=== PATIENT | female | born 1970 ===

== ENCOUNTER → 2021-06-26 11:46 | Outpatient (BNVA) | payer BC, SELFPAY | PROVIDERS: PCP Pediatrics; Visit Provider Nurse Practitioner Family ==

== ENCOUNTER 2022-12-08 13:03 | Outpatient (AMB) | payer BC, SELFPAY ==
--- NOTE | 2022-12-08 13:04 | MHC.OFFVIS ---
Intake Intake Visit Reasons: follow up ([employer]) [phone] Intake Note: Pt presents as a telehealth visit. pt states her migraines have not really improved.pt just tested positive for covid so she states it makes sense that she had a headache for over a week. and pt states she has pneumonia as well. 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 Pt endorses the following interval medical history changes: Pt was dx'd w/ PNA and Covid-19 2 days ago- was having increased headaches, then chest pressure, throat pain, and hyposmia. Was started on Doxycycline yesterday. Overall, before this, her headaches were ok. Although sometimes the headache is more persistent. She is having 3-4 headache days per week. She may wait to take the Fioricet, as it can make her drowsy. May use Aleve prn- usually not fully effective. We have previously not triptans d/t h/o chest pain, SOB, and cardiac valve damage. She is concerned about family h/o AD, especially on maternal side. Wonders when f/u brain imaging to monitor white matter changes would be indicated. [facility] Surgical History (Updated 12/08/22 @ 13:12 by Margi Nassar CMA) H/O wrist surgery H/O: hysterectomy Social History (Updated 12/08/22 @ 13:10 by Margi Nassar CMA) Alcohol intake: current Alcohol intake frequency: holidays/special occasions only Patient Tobacco Use Status: Former Tobacco user Use of substances other than those prescribed or required for medical reasons: No Review of Systems Const All systems reviewed & are unremarkable except as noted in HPI and below Physical Exam Const General: cooperative and no acute distress Orientation/consciousness: patient oriented x3 HEENT Other: Mild hoarse throat Head: Yes normocephalic Resp Effort & Inspection: normal respiratory effort and able to speak in complete sentences Neuro General: patient oriented x3 Cognition (Neuro): normal cognition Psych Mental Status: mental status grossly normal Affect: normal affect Attitude: cooperative Assessment & Plan Assessment & Plan (1) Migraine: Code(s): G43.909 - Migraine, unspecified, not intractable, without status migrainosus (2) Weakness: Comment: episodes of prolonged weakness/fatigue/brain fog exacerbated by physical/emotional/cognitive exertion. high suspicion for mitochondrial dysfunction considering her strong maternal family h/o of Oxidative phosphorylation. RF elevated- ? autoimmune process, however rheumatology consults have been inconclusive. Code(s): R53.1 - Weakness (3) COVID-19: Code(s): U07.1 - COVID-19 (4) Pneumonia: Code(s): J18.9 - Pneumonia, unspecified organism Plan Continue Amitriptyline 40mg qhs. Trial Ubrogepant 50-100mg prn, may adjunct w/ Naproxen- take at 1st sign of attack.. Do not take w/ Fioricet- would reduce efficacy of Ubrogepant. Continue Fioricet prn for rescue. Tx contraindications- Triptans d/t episodes of chest pain, SOB, and cardiac valve damage. Continue Co-Q-10, L-carnitine, vitamin B- if able. Continue therapeutic massage. pt advsied to check clinicaltrials.gov for information on current AD/AD prevention trials. f/u in 3 months or sooner prn Medications: New ubrogepant (Ubrelvy) take at onset of migraine, may repeat in 2hrs (may take w/ Aleve) 50 - 100 mg (0.5 - 1 x 100 mg) PO ONCE 30 days PRN 16 tabs 3RF migraine headache Refilled amitriptyline 40 mg (4 x 10 mg) PO BEDTIME 30 days 120 tabs 6RF Telehealth Telehealth Location of provider rendering services: practice address Location of patient: address on file Patient Identification confirmed using: Name, : Yes Telehealth method: video Patient verbally consented to treatment: Yes Patient verbally consented to billing insurance company: Yes Patient informed of any privacy concerns related to visit: Yes Minutes spent on Phone/Video with Pt.: 25 Coding Level of Care Code Tele Est Pt Level 4 (53241) Diagnoses Migraine G43.909 Weakness R53.1 COVID-19 U07.1 Pneumonia J18.9
== END 2022-12-08 14:54 | disposition home or self-care (01) ==
LOC: HO.HSMS 13:03
PROVIDERS: PCP Pediatrics; Visit Provider Nurse Practitioner Family
DX: G43.909 Migraine, unspecified, not intractable, without status migrainosus (principal); R53.1 Weakness; U07.1 COVID-19; J18.9 Pneumonia, unspecified organism
CPT/HCPCS: 99214

== ENCOUNTER → 2022-12-08 13:03 | Outpatient (BNVA) | payer BC, SELFPAY | PROVIDERS: PCP Pediatrics; Visit Provider Nurse Practitioner Family ==

== ENCOUNTER 2023-02-14 10:59 | Outpatient (AMB) | payer BC, SELFPAY ==
--- NOTE | 2023-02-14 11:20 | MHC.OFFVIS ---
Intake Vital Signs 02/14/23 11:23 Weight 119 lb BP 131/76 Blood Pressure Location Rt brachial Position Sitting Pulse 92 Intake Visit Reasons: Epidermoid cyst, RT shoulder Intake Note: This patient presents for an assessment for epidermoid cyst on the right shoulder. Patient c/o; Onset 1 year, reports increased in size, cyst right shoulder. 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 Accompanied by: Self / Same As Patient Allergies No Known Allergies Allergy (Verified 02/14/23 11:24) Medication List - Last Reconciled 02/14/23 by Chapin Sharma MD amitriptyline 40 mg (4 x 10 mg) PO BEDTIME 30 days gavznsnykj-vgrbmqymzldak-axrp 50-325-40 mg 1 - 2 tabs PO Q4H PRN 30 days doxycycline hyclate 100 mg PO BID rizatriptan 5 - 10 mg (0.5 - 1 x 10 mg) PO Q2H PRN 21 days sumatriptan succinate 50 - 100 mg orally at onset of headache, may repeat in 2 hrs PRN; max 2 tabs per day or 4 tabs/week (may take with Ibuprofen) 30 days ubrogepant (Ubrelvy) 50 - 100 mg (0.5 - 1 x 100 mg) PO ONCE PRN 30 days HPI HPI Comments History of Present Illness Details Patient presents with her mother for evaluation of the left shoulder sebaceous cyst. She has had this several years time. It is increasing size, become more symptomatic. She would like to have this excised. After chart was reviewed patient evaluated [facility] Surgical History H/O wrist surgery H/O: hysterectomy Social History Alcohol intake: current Alcohol intake frequency: holidays/special occasions only Patient Tobacco Use Status: Former Tobacco user Physical Exam Vital Signs: Last Vital Signs Pulse 92 02/14/23 11:23 BP 131/76 02/14/23 11:23 Skin Other: Approximate 3 x 2 cm large left lateral shoulder sebaceous cyst. Office Procedures Excision Details: Risks, benefits, alternatives of sebaceous cyst excision of left shoulder reviewed the patient and included but not limited to bleeding, infection, recurrence, numbness, pain, scarring, seroma formation, wound dehiscence, and patient wished to proceed. Consent was signed. After appropriate positioning, patient's left shoulder underwent 1% lidocaine and Betadine prep. A transverse bi- elliptical incision was made around the cyst in question measuring approximately 3 x 2 cm. This was excised in total and sent to pathology. Wound was irrigated, secured hemostasis, and closed using running subcuticular 3-0 Vicryl suture followed by Steri-Strips and sterile dressings. Patient tolerated procedure well. 97397-atxla/arms/legs 2.1-3cm Procedure code (CPT) selection complete Office Meds lidocaine 1 %-epinephrine 1:100,000 injection solution Performing Provider: Chapin Sharma MD Performing Location: [facility] [place] [facility] Surgeons Administered by: Chapin Sharma MD on 02/14/23 12:23 Dose Route Admin Location Dispensed Lot Number Expiration Date [facility] Methods Engineer 10 mL Infiltration 10 mL Assessment & Plan Assessment & Plan (1) Sebaceous cyst: Code(s): L72.3 - Sebaceous cyst Plan: Patient has been given local instructions including ice the wound periodically, no stress activities, may shower in 2 days and will see me as directed or p.r.n. Orders: Orders AMB Excision Today L72.3 - Sebaceous cyst Coding Level of Care Code New Pt Level 4 (32589) Diagnoses Sebaceous cyst L72.3 CPT Codes Trunk/Arms/Legs - CPT: 58410-wgcwn/arms/legs 2.1-3cm ([id number])
[2023-02-14 11:23] VITALS: BP 131/76; PULSE 92
== END 2023-02-14 12:14 | disposition home or self-care (01) ==
PROVIDERS: PCP Internal Medicine; Referring Provider Internal Medicine; Visit Provider Surgery
DX: L72.0 Epidermal cyst (principal)
CPT/HCPCS: 11402; 99204

== ENCOUNTER 2023-02-14 10:59 | Outpatient (REF) | payer BC, SELFPAY | END 2023-02-14 11:00 | disposition home or self-care (01) | LOC: HO.LNP 10:59 | PROVIDERS: PCP Internal Medicine; Referring Provider Internal Medicine; Visit Provider Surgery | DX: L72.3 Sebaceous cyst (principal) | CPT/HCPCS: 11402; 88304 ==

== ENCOUNTER 2023-02-21 11:36 | Outpatient (AMB) | payer BC, SELFPAY ==
[2023-02-21 11:39] VITALS: BP 128/76; PULSE 76
--- NOTE | 2023-02-21 11:39 | A.OFFVIS_ITS ---
Intake Vital Signs 02/21/23 11:39 Weight 119 lb BP 128/76 Blood Pressure Location Rt brachial Position Sitting Pulse 76 Intake Visit Reasons: s/p lt shoulder Intake Note: Patient here s/o exc lt shoulder. Reports incision healing well. Denies oozing, pain or itch. 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 No wound issues or complaints. Pathology is benign. PFSH Surgical History H/O wrist surgery H/O: hysterectomy Social History Alcohol intake: current Alcohol intake frequency: holidays/special occasions only Patient Tobacco Use Status: Former Tobacco user Physical Exam Vital Signs: Last Vital Signs Pulse 76 02/21/23 11:39 BP 128/76 02/21/23 11:39 Chest Other: Left shoulder wound is healing very well. Assessment & Plan Assessment & Plan (1) Sebaceous cyst: Code(s): L72.3 - Sebaceous cyst Plan Patient has been given local instructions including avoiding strenuous activities for next 2 weeks time and will follow-up p.r.n. Coding Level of Care Code Global (62353) Diagnoses Sebaceous cyst L72.3
== END 2023-02-21 11:50 | disposition home or self-care (01) ==
PROVIDERS: PCP Internal Medicine; Visit Provider Surgery
DX: L72.3 Sebaceous cyst (principal)
CPT/HCPCS: 99024

== ENCOUNTER → 2023-02-21 11:36 | Outpatient (BNVA) | payer BC, SELFPAY | PROVIDERS: PCP Internal Medicine; Visit Provider Surgery ==

== ENCOUNTER 2023-04-12 13:17 | Outpatient (AMB) | payer BC, SELFPAY ==
[2023-04-12 13:17] VITALS: BP 118/74; PULSE 99; O2SAT 98; BMI 24.3
--- NOTE | 2023-04-12 13:17 | MHC.OFFVIS ---
Intake Vital Signs 04/12/23 13:17 Height 4 ft 11 in Weight 120 lb 4 oz BMI 24.3 BP 118/74 Blood Pressure Location Rt brachial Position Sitting Pulse 99 Pulse Source Pulse Oximeter Pulse Oximetry (%) 98 Oxygen Delivery Method Room Air Intake Visit Reasons: Follow up Seizure - LVM Intake Note: Pt presents to the office today for a follow up for seizures. Pt states she is not feeling well. Pt states her migraines are getting worse. Pt was seen in [facility] ER on 04/07/23. Pt states they told her it was either a TIA or seizure caused by her migraine. Pt states she did have a CT,MRI, and X-rays done. Pt states she also is very fatigued. Allergies No Known Allergies Allergy (Verified 04/12/23 13:20) Medication List - Last Reconciled 04/12/23 by LAY Syed amitriptyline 40 mg (4 x 10 mg) PO BEDTIME 30 days zhmueluycc-qonbmiufcbjbw-mnyd 50-325-40 mg 1 - 2 tabs PO Q4H PRN 30 days rizatriptan 5 - 10 mg (0.5 - 1 x 10 mg) PO Q2H PRN 21 days sumatriptan succinate 50 - 100 mg orally at onset of headache, may repeat in 2 hrs PRN; max 2 tabs per day or 4 tabs/week (may take with Ibuprofen) 30 days ubrogepant (Ubrelvy) 50 - 100 mg (0.5 - 1 x 100 mg) PO ONCE PRN 30 days HPI HPI Comments History of Present Illness Details 53-yr-old female presents for f/u visit. Pt had a [facility] ER evaluation last week. She had been having a week of varying migraine the week prior- in varying intensity. Then on Tue, she woke up in the morning feeling a little shaky and then some numbness/pins & needles in her hands and toes. She was in a lunch meeting, she was in a good mood, laughing with a colleague. However she was feeling a bit confused, and then said something completely different than what she was thinking. She was not able to recall 2 of her therapy sessions. After which, she tried to drive home, but she forgot how to get home, pulled over, her work's therapy dog sat on her, and then she realized that she was not driving. That night she went to bed. The following morning, she called her mother, was speaking gibberish. At that point, she was brought to [facility] ER. In the ER, brain MRI, head CT, head/neck CTA- non-diagnostic. Pt was advsied to f/u w/ us- ? complex migraine . She is worried about having another episode. Prior to this, overall her migraine burden was increasing. Now, she is having a constant migraine with varying intensity level. The migraine is often left sided, throbbing pain when severe, aching when mild-mod. A/w photophobia, phonobia, allodynia, nausea, vomiting. She has been compliant w/ Amitriptyline 40mg. Sumatriptan and Rizatriptan- not effective. Never rec'd Ubrlevy. She stopped Fioricet. [facility] Surgical History H/O wrist surgery H/O: hysterectomy Alcohol intake: current Alcohol intake frequency: holidays/special occasions only Patient Tobacco Use Status: Former Tobacco user Review of Systems Const All systems reviewed & are unremarkable except as noted in HPI and below Physical Exam Vital Signs: Last Vital Signs Pulse 99 04/12/23 13:17 BP 118/74 04/12/23 13:17 Pulse Ox 98 04/12/23 13:17 Oxygen Delivery Method Room Air 04/12/23 13:17 BMI result Body Mass Index 24.3 Const General: cooperative and no acute distress Orientation/consciousness: patient oriented x3 HEENT Head: Yes normocephalic Resp Effort & Inspection: normal respiratory effort and able to speak in complete sentences Neuro General: patient oriented x3, gait normal and CN's II-XI intact bilaterally Cognition (Neuro): normal cognition Motor exam (neuro): 5/5 motor strength present throughout Psych Appearance: grossly normal Mental Status: mental status grossly normal Speech and movement: Normal speech and movement present Affect: normal affect Attitude: cooperative Thought process: Normal thought process present Thought content: Normal thought content present Insight: Good insight present (Psych) Judgement: Good judgement present (Psych) Assessment & Plan Assessment & Plan (1) Altered mental status: Code(s): R41.82 - Altered mental status, unspecified (2) White matter abnormality on MRI of brain: Code(s): R90.82 - White matter disease, unspecified (3) Migraine: Comment: ? chronic migraine with aura Code(s): G43.909 - Migraine, unspecified, not intractable, without status migrainosus Plan For recent episode of AMS- In [facility] ER: Brain MRI w/o: Mild scattered T2/FLAIR hyperintense foci in the white matter Head-Neck CTA- negative Head CT- negative Pt advised to undergo EEG- although discussed low suspicion for epileptic etiology d/t prolonged duration of her episode/s of AMS. Pt advised to undergo f/u brain MRI w/wo- to assess for any interval change in MRI- ? TIA/CVA not captured initially or inflammatory central process. Advised to optimize migraine prevention regimen: Start Propranolol 10mg bid. Continue Amitriptyline 40mg qhs. For acute migraine tx: Hold Sumatriptan and Rizatriptan- ineffective. Again trial Ubrogepant 50-100mg prn, may adjunct w/ Naproxen- take at 1st sign of attack.. Do not take w/ Fioricet- would reduce efficacy of Ubrogepant. Pt has stopped Fioricet prn- ineffective. Tx contraindications- Sumatriptan and Rizatriptan- ineffective. Fioricet prn- ineffective. ? For ? mitochondrial d/o: Continue Co-Q-10, L-carnitine, vitamin B- if able. Continue therapeutic massage. ?? f/u in 3 months or sooner prn Orders: Orders MR head/brain wo/w con Today G43.909 - Migraine, unspecified, not intractable, without status migrainosus, R41.82 - Altered mental status, unspecified, R90.82 - White matter disease, unspecified EEG electroencephalogram Today R41.82 - Altered mental status, unspecified Medications: New propranolol 10 mg PO BID 30 days 60 tabs 3RF Refilled ubrogepant (Ubrelvy) take at onset of migraine, may repeat in 2hrs (may take w/ Aleve) 50 - 100 mg (0.5 - 1 x 100 mg) PO ONCE 30 days PRN 16 tabs 3RF migraine headache Discontinued cqvfllpqbg-dizcmmdcjulli-wvjs 50-325-40 mg 1-2 tabs at onset of headache, may repeat in 4 hours (max 2 tabs/day, 4 tabs/week) Discontinued Reason: Doctor's Order 1 - 2 tabs PO Q4H 30 days PRN 20 tabs 3RF pain Coding Level of Care Code Est Pt Level 4 (06469) Diagnoses Altered mental status R41.82 White matter abnormality on MRI of brain R90.82 Migraine G43.909
== END 2023-04-12 14:20 | disposition home or self-care (01) ==
PROVIDERS: PCP Internal Medicine; Visit Provider Nurse Practitioner Family
DX: R41.82 Altered mental status, unspecified (principal); R90.82 White matter disease, unspecified; G43.909 Migraine, unspecified, not intractable, without status migrainosus
CPT/HCPCS: 99214

== ENCOUNTER → 2023-04-12 13:17 | Outpatient (BNVA) | payer BC, SELFPAY | PROVIDERS: PCP Internal Medicine; Visit Provider Nurse Practitioner Family ==

== ENCOUNTER 2023-04-28 12:03 | Outpatient (REF) | payer BC, SELFPAY ==
--- NOTE | 2023-04-28 12:10 | EEG_ITS ---
This is a 16-channel EEG with an EKG lead. The patient is reported alert and awake during the tracing. Background EEG rhythm is low amplitude fast with no obvious asymmetry or paroxysmal tendency. Photic stimulation does not produce any significant abnormality. Hyperventilation is not performed to the full extent. No sharp wave spikes or paroxysmal tendency noted. Cardiac lead does not reveal any significant abnormality. IMPRESSION: No significant abnormality noted on this EEG. MD ORTIZ Paez/MO / [id number]
== END 2023-04-28 12:04 | disposition home or self-care (01) ==
LOC: HO.NEURO 12:03
PROVIDERS: PCP Internal Medicine; Visit Provider Nurse Practitioner Family
DX: R41.82 Altered mental status, unspecified (principal)
CPT/HCPCS: 95816

== ENCOUNTER 2023-12-27 11:32 | Outpatient (AMB) | payer BC, SELFPAY ==
--- NOTE | 2023-12-27 11:33 | A.OFFVIS_ITS ---
Vital Signs 12/27/23 11:34 Height 4 ft 11 in Weight 115 lb BMI 23.2 BP 112/82 Blood Pressure Location Rt brachial Position Sitting Pulse 91 Pulse Source Pulse Oximeter Pulse Oximetry (%) 96 Oxygen Delivery Method Room Air Intake Visit Reasons: 4 mo f/u - Seizure-CONF Intake Note: Patient presents for migraines worsened since seeing provider has migraines everyday for the last two weeks. Allergies No Known Allergies Allergy (Verified 12/27/23 11:40) Medication List - Last Reconciled 12/27/23 by LAY Syed amitriptyline 40 mg (4 x 10 mg) PO BEDTIME 30 days ubrogepant (Ubrelvy) 50 - 100 mg (0.5 - 1 x 100 mg) PO ONCE PRN 30 days HPI Comments Details: 53-yr-old female presents for f/u visit. Pt denies any significant interval medical changes. She has not had any further seizure like episodes- she now feels that the seizure like episode may have been triggered by a worsening migraine period. Pt has had a migraine every day in the last 2 weeks. She is not sure why she has had this uptick in migraine- maybe stress or the recent increase in hot weather. The Ubrelvy has been helpful, however she only takes it at night as it makes her sleepy. She tried Propranolol- but it caused her to be lightheaded/faint, which resolved upon stopping. Baseline headache characteristics: often left sided, throbbing pain when severe, aching when mild-mod. A/w photophobia, phonobia, allodynia, nausea, vomiting. PFSH Surgical History H/O wrist surgery H/O: hysterectomy Social History Alcohol intake: current Alcohol intake frequency: holidays/special occasions only Patient Tobacco Use Status: Former Tobacco user Physical Exam Vital Signs: Last Vital Signs Pulse 91 12/27/23 11:34 BP 112/82 12/27/23 11:34 Pulse Ox 96 12/27/23 11:34 Oxygen Delivery Method Room Air 12/27/23 11:34 BMI result Body Mass Index 23.2 Const General: cooperative and no acute distress Orientation/consciousness: patient oriented x3 Resp Effort & Inspection: normal respiratory effort and able to speak in complete sentences Neuro General: patient oriented x3 Cranial nerves: Yes CN's II-XII intact bilaterally Cognition (Neuro): normal cognition Psych Appearance: grossly normal Mental Status: mental status grossly normal Speech and movement: Normal speech and movement present Affect: normal affect Attitude: cooperative Assessment & Plan Assessment & Plan (1) Migraine: Comment: ? chronic migraine with aura Code(s): G43.909 - Migraine, unspecified, not intractable, without status migrainosus Category: Medical (2) Altered mental status: Code(s): R41.82 - Altered mental status, unspecified Category: Medical Plan For previous episode of AMS- [facility] ER, Brain MRI w/o: Mild scattered T2/FLAIR hyperintense foci in the white matter Head-Neck CTA- negative Head CT- negative [facility], EEG- normal. No further episodes- ? if secondary to migraine. Will monitor. ? Advised to optimize migraine prevention regimen: Pt stopped Propranolol 10mg bid- not tolerated caused lightheadedness. Start Emaglaity 240mg sc x's 1 f/b 120mg sc q month. Continue Amitriptyline 40mg qhs. Previous trials- Propranolol 10mg bid- not tolerated caused lightheadedness. ? For acute migraine tx: Continue Ubrogepant 50-100mg prn, may adjunct w/ Naproxen- take at 1st sign of attack. Trial taking 50mg to see if this causes less sleepiness. Tx contraindications- Sumatriptan and Rizatriptan- ineffective. Fioricet prn- ineffective. ? For ? mitochondrial d/o: Continue Co-Q-10, L-carnitine, vitamin B- if able. Continue therapeutic massage. ?? f/u in 6 months or sooner prn Medications: New galcanezumab-gnlm (Emgality Pen) Loading dose: 120 mg subcu injection x2 in alternate sites (total 240 mg). T o be followed by maintenance dose of 120 mg subcu q.month. 240 mg (2 mL) subcut ONCE 30 days 2 mL 0RF Coding Level of Care Code Est Pt Level 4 (52279) Diagnoses Migraine G43.909 Altered mental status R41.82
[2023-12-27 11:34] VITALS: BP 112/82; PULSE 91; O2SAT 96; BMI 23.2
== END 2023-12-27 12:43 | disposition home or self-care (01) ==
PROVIDERS: PCP Internal Medicine; Visit Provider Nurse Practitioner Family
DX: G43.909 Migraine, unspecified, not intractable, without status migrainosus (principal); R41.82 Altered mental status, unspecified
CPT/HCPCS: 99214

== ENCOUNTER → 2023-12-27 11:32 | Outpatient (BNVA) | payer BC, SELFPAY | PROVIDERS: PCP Internal Medicine; Visit Provider Nurse Practitioner Family ==

== ENCOUNTER 2024-07-02 13:46 | Outpatient (AMB) | payer BC, SELFPAY ==
--- NOTE | 2024-07-02 13:37 | MHC.OFFVIS ---
Vital Signs 07/02/24 13:42 Height 4 ft 11 in Weight 108 lb BMI 21.8 Intake Visit Reasons: Follow up Trip Motor Operator Required: No Allergies No Known Allergies Allergy (Verified 07/02/24 13:40) HPI Comments Details: 54-yr-old female presents for f/u televideo visit for migraine. 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 Pt reports she had an 8 day hospitalization for small bowel obstruction in Jan 2024, which was thought to be due to postsurgical adhesions from previous hysterectomy and h/o mx laprascopic procedures to manage endometriosis. During the hospitalization, patient had weight loss down to 110 lb, in her weight now is 107-108 lb. She is being followed by [facility]. She has been started on Linzess. Rayshawn is scheduled for f/u endoscopy on 07/26/24 She does think that since starting Linzess about a month ago, she is having more headache. She is waking up daily with a headache. She thinks the BAILEY is triggered by not drinking enough water, as on Linzess, she needs to drink increased fluids. She is compliant w/ Amitriptyline 40mg. She never started Emgality d/t the SBO- and more recently, GI asked her to hold this until after GI workup is complete. She is using Ubrelvy prn which is helpful.. She has not had any further seizure like episodes- she now feels that the seizure like episode may have been triggered by a worsening migraine period. Baseline headache characteristics: often left sided, throbbing pain when severe, aching when mild-mod. A/w photophobia, phonobia, allodynia, nausea, vomiting. PFSH Surgical History H/O wrist surgery H/O: hysterectomy Social History Alcohol intake: current Alcohol intake frequency: holidays/special occasions only Patient Tobacco Use Status: Former Tobacco user Physical Exam Vital Signs: BMI result Body Mass Index 21.8 Const General: cooperative and no acute distress Orientation/consciousness: patient oriented x3 Resp Effort & Inspection: normal respiratory effort and able to speak in complete sentences Neuro General: patient oriented x3 Cognition (Neuro): normal cognition Psych Appearance: grossly normal Mental Status: mental status grossly normal Speech and movement: Normal speech and movement present Affect: normal affect Attitude: cooperative Telehealth Telehealth Telehealth Platform: [facility] Location of provider rendering services: practice address Location of patient: address on file Patient Identification confirmed using: Name, : Yes Telehealth method: video Patient verbally consented to treatment: Yes Patient verbally consented to billing insurance company: Yes Patient informed of any privacy concerns related to visit: Yes Minutes spent on Phone/Video with Pt.: 24 Assessment & Plan Assessment & Plan (1) Migraine: Comment: ? chronic migraine with aura Code(s): G43.909 - Migraine, unspecified, not intractable, without status migrainosus Category: Medical (2) History of small bowel obstruction: Comment: January 2024- f/b [facility] Code(s): Z87.19 - Personal history of other diseases of the digestive system Category: Medical (3) Constipation: Code(s): K59.00 - Constipation, unspecified Category: Medical (4) Weakness: Comment: episodes of prolonged weakness/fatigue/brain fog exacerbated by physical/emotional/cognitive exertion. high suspicion for mitochondrial dysfunction considering her strong maternal family h/o of Oxidative phosphorylation. RF elevated- ? autoimmune process, however rheumatology consults have been inconclusive. Code(s): R53.1 - Weakness Category: Medical Plan For previous episode of AMS- We will continue to monitor Previous workup: [facility] ER, Brain MRI w/o: Mild scattered T2/FLAIR hyperintense foci in the white matter Head-Neck CTA- negative Head CT- negative [facility], EEG- normal. No further episodes- ? if secondary to migraine. Will monitor. For overall migraine treatment: Continue to try to drink plenty of water every day. May try adjunct doing this with 1 or 2 servings of liquid IV or alternate electrolyte replacement beverage per day. Discussed at migraine itself and some migraine treatment options can exacerbate constipation or gastroparesis type symptoms, and thus we should be mindful in choosing migraine treatments to avoid exacerbating constipation or triggering recurrence of SBO. ? For migraine prevention treatment: Continue to hold Emaglaity until GI workup complete. Patient will ask that her GI reports before added to us. Continue Amitriptyline 40mg qhs. Previous trials- Propranolol 10mg bid- not tolerated caused lightheadedness. Migraine prevention treatment contraindications: Would avoid Aimovig due to risk for worsening constipation. For acute migraine tx: Continue Ubrogepant 50-100mg prn, may adjunct w/ Naproxen- take at 1st sign of attack. Tx contraindications- Sumatriptan and Rizatriptan- ineffective. Fioricet prn- ineffective. ? For ? mitochondrial d/o: Continue Co-Q-10, L-carnitine, vitamin B- if able. Continue therapeutic massage. ?? f/u in 6 months or sooner prn Coding Level of Care Code Tele Est Pt Level 4 (26022) Diagnoses Migraine G43.909 History of small bowel obstruction Z87.19 Constipation K59.00 Weakness R53.1
[2024-07-02 13:42] VITALS: BMI 21.8
--- OUTSIDE RECORDS SUMMARY | 2024-07-02 14:55 | XMS_ITS | Clinical Summary ---
Author Organization [employer] Address [address] [facility] [address] [place] [address] Care Team Providers Care Mortgage Loan Officer Name Role Phone Katheryn Rivera MD Primary Care Provider [phone] Allergies No known active allergies Medications Misc. Devices ([employer] Pulse Oximeter) miscIndications: Pneumonia due to COVID-19 virus 1 each if needed (COVID). 1 each 12/08/19 23 Active amitriptyline (Elavil) 10 MG tablet TAKE 4 TABLETS BY MOUTH EVERY DAY AT BEDTIME 02/28/20 23 Active Blood Pressure kit To check the BP daily. 1 kit 07/14/19 24 Active Emgality 120 MG/ML auto-injector Inject 1 each under the skin every 30 (thirty) days. 02/20/20 24 Active Ubrelvy 100 MG tablet TAKE 1/2 TO 1 TAB BY MOUTH ONCE NEEDED AT ONSET OF MIGRAINE,MA Y REPEAT IN 2HRS(MAY TAKE W/ ALEVE) 02/13/20 24 Active Bisacodyl EC 5 MG EC tabletIndication s:Slow transit constipation TAKE 1 TABLET BY MOUTH IF NEEDED EACH DAY FOR CONSTIPATIO N. DO NOT CRUSH, CHEW, OR SPLIT. 30 tablet 1 06/14/19 25 Active Bisacodyl EC 5 MG EC tabletIndication s:Slow transit constipation TAKE 1 TABLET BY MOUTH IF NEEDED EACH DAY FOR CONSTIPATIO N. DO NOT CRUSH, CHEW, OR SPLIT. 30 tablet 05/07/20 24 025 Discontinued Active Problems Problem Noted Date Diagnosed Date Constipation 03/16/2024 Endometriosis 03/06/2024 Classic migraine 03/17/2023 03/17/2023 Anxiety and depression 03/17/2023 Rheumatic heart disease 03/17/2023 03/17/20 Encounters Date Type Department Care Team Description 06/12/2024 Refill [facility] [address] [place] [address] Katheryn Rivera MD Slow transit constipation 05/07/2024 [facility] [address] [place] [address] Katheryn Rivera MD Slow transit constipation from Last 3 Months Immunizations Name Administration Dates Next Due Influenza injectable quadrivalent preservative f ree 02/07/2023,02/19/2021 Influenza, IIV3, injectable 02/02/2013 Influenza, seasonal, injectable, preservative fr ee 03/06/2024 Pfizer Covid-19 Vaccine 12+ 03/06/2024 Td (adult), unspecified 06/11/2009 Social History Tobacco Use Types Packs/Day Years Used Date Smoking Tobacco: Never Smokeless Tobacco: Never Tobacco Cessation:Counseling Given: Not Answered Alcohol Answer Date Recorded Frequency of Alcohol Consumption Not on file 03/16/2024 Average Number of Drinks Not on file 024 Frequency of Binge Drinking Not on file 02/21 Score 0 03/16/2024 Depression Answer Date Recorded Patient Health Questionnaire-9 Score 0 03/17/2023 Patient Health Questionnaire-9 Score 0 03/17/2023 Last PHQ-9: Questionnaire Data Not on file 1 Housing Stability Answer Date Recorded What is your housing situation today? I have viola mcneil 03/17/[address] you li ve. Do you have problems with any of the following? None of the above 03/17/2023 Food Insecurity Answer Date Recorded Within the past 12 months, y ou worried that your food would run out before you got money to buy more: Never True 03/17/2023 Within the past 12 months,th e food you bought just didn't last and you didn't have enough money to get more: Never True Transportation Answer Date Recorded In the past 12 months, has l ack of transportation kept you from medical appts, meetings, work or from getting things needed for daily living? No 03/17/2023 Utilities Answer Date Recorded In the past 12 months, has t he electric, gas, oil or water company threatened to shut off services in your home? No 03/17/2023 Depression Answer Date Recorded Patient Health Questionnaire-2 Score 0 03/17/2023 Comments Unknown Sex and Gender Information Value Date Recorded Sex Assigned at Female 03/22/2022 10:37 AM EDT Legal Sex Female 10:37 AM EDT Gender Identity Choose not to disclose 10:37 AM EDT Sexual Orientation Choose not to disclose 2021 10:37 AM EDT Last Filed Vital Signs Vital Sign Reading Time Taken Comments Blood Pressure 120/78 03/16/2024 2:14 PM EDT Pulse 82 03/16/2024 2:14 PM EDT Temperature 36.4 ??C (97.6 ??F) 03/16/2024 2:14 PM ED T Respiratory Rate 20 03/16/2024 2:14 PM EDT Oxygen Saturation 98% 03/16/2024 2:14 PM EDT Inhaled Oxygen Concentration - - Weight 50.2 kg (110 lb 9.6 oz) 03/16/2024 2:14 P M EDT Height 152 cm (4' 11.84 ) 03/16/2024 2:14 PM EDT Body Mass Index 21.71 03/16/2024 2:14 PM EDT Plan of Treatment Health Maintenance Due Date Last Done Comments CT Colonography 1969 Colonoscopy 1969 Colorectal Cancer Screening 1969 FIT DNA/Cologuard 1969 FIT 1969 FOBT 1969 HIV Screening 1969 Sigmoidoscopy 1969 Hepatitis C Screening 1987 Hepatitis B Vaccines (1 of 3 - 19+ 3-dose series) 01/31/1988 Pap Smear 1990 Cervical Cancer Screening 1999 HPV/Cotest 1999 Mammogram 2009 DTaP/Tdap/Td Vaccines (1 - Tdap) 06/12/2009 06/11/2009 Pneumococcal Vaccine: 50+ Years (1 of 1 - PCV) 2019 Zoster Vaccines (1 of 2) 2019 Depression Screening 03/17/2024 03/17/2023, 03/17/20 SDOH Screening 03/17/2024 03/17/2023 Alcohol/Substance Use Screening 03/16/2025 03/16/2024 Tobacco Screening 03/18/2025 03/18/2024 RSV Patients and Patients Aged 60 years or older (1 - 1-dose 75+ series) 01/31/2044 COVID-19 Vaccine Completed 03/06/2024, , 03/12/2021, Additional history exists Influenza Vaccine Completed 03/06/2024, , 02/19/2021, Additional history exists HIB Vaccines Aged Out No longer eligi ble based on patient's age to complete this topic HPV Vaccines Aged Out No longer eligi ble based on patient's age to complete this topic Hepatitis A Vaccines Aged Out No long er eligible based on patient's age to complete this topic IPV Vaccines Aged Out No longer eligi ble based on patient's age to complete this topic Meningococcal Vaccine Aged Out No dhruv ramón eligible based on patient's age to complete this topic RSV under 20 months Aged Out No longe r eligible based on patient's age to complete this topic Rotavirus Vaccines Aged Out No longer eligible based on patient's age to complete this topic Procedures Procedure Name Priority Date/Time Associated Diagnosis Comments AMB REFERRAL TO GASTROENTEROLOGY Routine 05/14/2024 Small bowel obstruction (CMS/HCC) from Last 3 Months Results * Referral to Gastroenterology (05/14/2024) Katheryn Rivera MD OUTPATIENT REFERRAL ORDERAB LES Final Result from Last 3 Months Insurance [facility] [place] [address] [place] [id number] [place] [id number] Care Teams Mortgage Loan Officer Relationship Specialty Start Date End Date Katheryn Rivera MD [address] [place] [id number] PCP - General Internal Medicine 01/16/20
--- OUTSIDE RECORDS SUMMARY | 2024-07-02 14:55 | XMS_ITS | Clinical Summary ---
Author Organization [employer] [facility] Address [address] [address] Care Team Providers Care Mixer Foam Rubber Name Role Phone No, Pcp BULLION WEIGHER Primary Care Provider Unavailabl e Allergies No known active allergies Medications oxyCODONE (ROXICODONE) 5 MG immediate release tablet TAKE 1 TABLET BY MOUTH FOUR TIMES A DAY NEEDED FOR PAIN (DO NOT DRIVE) 04/21/2020 Active amitriptyline (ELAVIL) 10 MG tablet TAKE 1 TABLET BY MOUTH EVERYDAY AT BEDTIME 08/15/2020 Active butalbital-acet aminophen-caffe ine (ESGIC) 50-325-40 mg tablet TAKE 1 TO 2 TABLETS AT ONSET OF HEADACHE NEEDED ,MAY REPEAT IN 4 HOURS (MAX 4 TABS PER DAY) 07/18/2020 Active Denta 5000 Plus 1.1 % crea BRUSH DIRECTED 07/18/2020 Active polyethylene glycol (GoLYTELY) 236-22.74-6.74 -5.86 gram solution MIX WITH WATER TO FILL LINE. TAKE DIRECTED 07/22/2020 Active Social History Tobacco Use Types Packs/Day Years Used Date Smoking Tobacco: Never Assessed Comments Unknown Sex and Gender Information Value Date Recorded Sex Assigned at Not on file Legal Sex Female 4:54 PM EST Gender Identity Not on file Sexual Orientation Not on file Last Filed Vital Signs Vital Sign Reading Time Taken Comments Blood Pressure - - Pulse 60 08/21/2020 12:31 PM EDT Temperature 36.1 ??C (97 ??F) 08/21/2020 12:31 PM EDT Respiratory Rate - - Oxygen Saturation 100% 08/21/2020 12:31 PM EDT Inhaled Oxygen Concentration - - Weight - - Height - - Body Mass Index - - Plan of Treatment Health Maintenance Due Date Last Done Comments Colorectal Cancer: COLONOSCO PY Screening every 10 yrs (or Modifier) 1969 Depression: Screening Annual ly using PHQ-2/9 in Adults 18 yrs or above (or HM Modifier)([facility]) 1987 Hepatitis C Virus Infection in Adolescents and Adults: Screening (or Modifier) ([facility]) 1987 SDHI Screening Reminder: Dora butt for all adults ([facility]) 1987 Tobacco Smoking Cessation: i n Adults excluding Women: Behavioral and Pharmacotherapy Interventions ([facility]) 1987 DTaP/Tdap/Td Vaccines ([facility]) (1 - Tdap) 01/31/1988 Cervical Cancer Screenin 1-65 yrs of age (or Modifier) 1990 Cervical Cancer Screening: P ap every 3 yrs pts age 21-65 1990 Cervical Cancer: Pap Screeni ng with Modifier timing ([facility]) 1990 Cervical Cancer: hrHPV alone or with cotesting Pap for Pts 30-65yrs screening every 5yrs ([facility]) 1990 Colorectal Cancer Screening 45 -75 Yrs (or HM Modifier) 2014 Colorectal Cancer: FLEXIBLE SIGMOIDOSCOPY Screening every 5 yrs 2014 Colorectal Cancer: Fecal Immunochemical Test (FIT) Annually [facility] 2014 Colorectal Cancer: High-sens itivity gFOBT Screening Annually [facility] 2014 Colorectal Cancer: Stool Col oguard Screening every 3 yrs 2014 Colorectal Cancer:CT Colonog masoud Screening every 5 yrs 2014 Lipid Screening: Every 5 yrs for Women aged 45+ (or HM Modifier) ([facility]) 2015 Breast Cancer: Screening Dora butt age 50-74 yrs (or HM Modifier)([facility]) 2019 Zoster/Shingles Vaccine Seri es Screening: Adults aged 18+ yrs (or HM Modifiers)([facility]) (1 of 2) 2019 Flu Vaccination: Yearly for ages 18mos through 64 years (or Modifier)([facility]) 12/22/2023 COVID-19 Vaccine Screening: Initial Series and Booster Status ([facility]) (2023-25 season) 2024 Pneumococcal Vaccination Scr eening: Pts 0-19 & 19-64 yrs of age ([facility]) Aged Out No longer eligible based on patient's age to complete this topic Medical Devices Not on file Insurance [employer] Care Teams Mixer Foam Rubber Relationship Specialty Start Date End Date No, Pcp, BULLION WEIGHER N/A Do not use PCP - General Family Medicine 06/30/20
--- OUTSIDE RECORDS SUMMARY | 2024-07-02 14:55 | XMS_ITS | Continuity of Care Document ---
Author Organization [facility] Address [address] [place] [id number] [facility] Name Relationship Address Phone MINNIE SHIPMAN mother Unknown Unavailable CALVIN MEDRANO Personal Relationship Unknown Unava ilable ZENY MEDRANO child Unknown Unavailable ANGELIQUE CLAUDIO sibling Unknown Unavailable MINNIE SHIPMAN mother Unknown Unavailable Care Team Providers Care Nursing Program Coordinator Name Role Phone Nicole DELUNA, Katheryn Primary Care Physician [facility] [id number] Date(s): 05/14/24 - 06/13/24 [facility] [address] [place] [id number] Attending Physician: Paulie Tavares Admitting Physician: Paulie Tavares Referring Physician: AdmtrPaulei Encounter Type: Triage Allergies, Adverse Reactions, Alerts No Known Allergies Immunizations Given and Recorded Vaccine Date Status Refusal Reason influenza virus vaccine, inactivated 02/02/13 Give n tetanus-diphtheria toxoids (Td) 1 06/11/09 Given 1Admin Note: [facility] [place] Medications acetaminophen/butalbital/caffeine 300 mg-50 mg-40 mg oral capsule 1 capsule, By Mouth, Every 4 hours, 0 Refills, Maintenance, 03/12/21 10:23:00 AM EDT, Partial fill upon patient request if the prescription is for a schedule II opioid drug. Start Date: 03/12/21 Status: Ordered Repeat number: 1 amitriptyline 10 mg oral tablet 40 mg, 4, tablet, By Mouth, Daily at bedtime, Refills 0, Maintenance, 04/07/23 6:54:00 PM EST, Partial fill upon patient request if the prescription is for a schedule II opioid drug. Start Date: 04/07/23 Status: Ordered Repeat number: 1 Linzess 145 mcg oral capsule 1 capsule = 145 mcg, By Mouth, Daily, Take 30 minutes before breakfast, # 30 capsule, 3 Refills, Maintenance, 05/14/24 2:42:00 PM EST, Capsule, [id number], 150, cm, 05/14/24 13:44:00 EST, Height, 58.1, kg, 02/06/24 22:27:00 EDT, Dry Weight Start Date: 05/14/24 Stop Date: 09/11/24 Status: Ordered Quantity: 30.0 Unit: capsule Repeat number: 4 Multi Vitamin+ By Mouth, Daily, 0 Refills, Maintenance, 03/14/20 2:00:00 PM EDT Start Date: 03/14/20 Status: Ordered Repeat number: 1 SUMAtriptan 100 mg oral tablet 1 tablet = 100 mg, By Mouth, Daily, PRN for migraine headache, may repeat dose after 2 hours up to a maximum of 2, # 9 tablet, 0 Refills, Maintenance, 04/07/23 6:56:00 PM EST, Tablet, Partial fill upon patient request if the prescription is for a schedule II opioid drug. Start Date: 04/07/23 Status: Ordered Quantity: 9.0 Unit: tablet Repeat number: 1 Ubrelvy 100 mg oral tablet 1 tablet = 100 mg, By Mouth, Once, PRN as needed for migraine headache, may repeat dose in 2 hours if needed, # 16 tablet, 0 Refills, Maintenance, 05/14/24 1:43:00 PM EST, Tablet, Partial fill upon patient request if the prescription is for a schedule II opioid drug. Start Date: 05/14/24 Status: Ordered Quantity: 16.0 Unit: tablet Repeat number: 1 Problem List Condition Confirmation Course Effective Dates Status Health St atus Informant Anxiety and depression Confirmed Active Classic migraine Confirmed Active Rheumatic heart disease Confirmed Active Small bowel obstruction Confirmed Active Social History Social History Type Response Smoking Status Former smoker, quit more than 30 days ago entered on: 07/03/19 Sex Sex Representation Female (finding) Patient Care team information Care Team Personnel Name: Sly Kidd Position: [facility] Outreach Member Role: Lifetime Consulting Physician Name: Roxanne VAN, Kacey Christopher Position: S RN Member Role: Primary Care Nurse Name: Katheryn Rivera MD Position: S Outreach Member Role: PCP Address: [address] [place] [address] Telecom: Name: Lonnie Driscoll RN Position: [facility] RN Member Role: Primary Care Nurse Name: Hue Tobias RN Position: [facility] RN Member Role: Primary Care Nurse Name: Lina Lucia RN Position: [facility] RN Member Role: Primary Care Nurse Name: Noemy Harper RN Position: [facility] RN Member Role: Primary Care Nurse Name: Sudha Garcia Position: [facility] Outreach Member Role: Lifetime Consulting Physician Care Team Related Persons Name: ZENY MEDRANO Name: MINNIE SHIPMAN Name: MINNIE SHIPMAN Insurance Providers Guarantor name: CALVIN [facility] Information #: 1 Payer: HMO [employer] Member Number: NA Policy Number: NA Group Number: NA
--- OUTSIDE RECORDS SUMMARY | 2024-07-02 14:55 | XMS_ITS | Encounter Summary ---
Author Organization [employer] Address [address] [facility] [address] [place] [address] Care Team Providers Care Business Programmer Name Role Phone Katheryn Rivera MD Primary Care Provider [phone] Reason for Visit * Reason Comments Med Refill Encounter Details Date Type Department Care Team ([facility] Contact Info) Description 06/12/2024 Refill [facility] [address] [place], [place] [phone] Katheryn Rivera MD [address] [place] [address] Slow transit constipation Social History Tobacco Use Types Packs/Day Years Used Date Smoking Tobacco: Never Smokeless Tobacco: Never Alcohol Answer Date Recorded Frequency of Alcohol [...] not to disclose 2021 10:37 AM EDT documented as of this encounter Plan of Treatment Not on file documented as of this encounter Visit Diagnoses Diagnosis Slow transit constipation documented in this encounter Additional Health Concerns Assessment Noted Time PHQ-9 Depression Total Score: 0 03/17/20 23 1:25 PM EDT documented as of this encounter Care Teams Business Programmer Relationship Specialty Start Date End Date Katheryn Rivera MD [address] [place] [id number] PCP - General Internal Medicine 01/16/20 documented as of this encounter
== END 2024-07-02 16:24 | disposition home or self-care (01) ==
PROVIDERS: PCP Internal Medicine; Visit Provider Nurse Practitioner Family
DX: G43.909 Migraine, unspecified, not intractable, without status migrainosus (principal); Z87.19 Personal history of other diseases of the digestive system; K59.00 Constipation, unspecified; R53.1 Weakness
CPT/HCPCS: 99214

== ENCOUNTER → 2024-07-02 13:46 | Outpatient (BNVA) | payer BC, SELFPAY | PROVIDERS: PCP Internal Medicine; Visit Provider Nurse Practitioner Family ==

== ENCOUNTER 2025-03-22 14:39 | Outpatient (REF) | payer BC, SELFPAY ==
--- OUTSIDE RECORDS SUMMARY | 2025-03-22 14:00 | XMS_ITS | Encounter Summary ---
Author Organization [employer] Address [address] [place] [address] 7 [place] [address] Care Team Providers Care Mechanic'S Assistant Name Role Phone Katheryn Rivera MD Primary Care Provider [phone] Reason for Referral * Imaging (Routine) - Authorized Specialty Diagnoses / Procedures Referred By Contac t Referred To Contact Radiology Diagnoses Encounter for screening mammogram for malignant neoplasm of breast Procedures BI Mammogram Screening Tomosynthesis Bilateral Katheryn Rivera MD [address] [place] [address] Phone: tel: fax: [facility] Referral ID Status Reason Start Date Expiration Date V isits Requested Visits Authorized [id number] Authorized 03/22/2025 03/22/2026 1 1 Reason for Visit * Reason Comments Annual Exam Encounter Details Date Type Department Care Team ([facility] st Contact Info) Description 03/22/2025 2:00 PM EDT Office Visit [facility] CHC MED & PEDS [address] [place] [address] Katheryn Rivera MD [address] [place] [address] Annual physical exam (Primary Dx); Slow transit constipation; Hot flashes due to menopause; Other fatigue; Encounter for screening mammogram for malignant neoplasm of breast Social History Tobacco Use Types Packs/Day Years Used Date Smoking Tobacco: Never Smokeless Tobacco: Never Depression Answer Date Recorded Patient Health Questionnaire-9 [...] Sex Female 10:37 AM EDT Gender Identity Female 10/16/2024 11:33 AM EDT Sexual Orientation Straight 10/16/2024 11 :33 AM EDT documented as of this encounter Last Filed Vital Signs Vital Sign Reading Time Taken Comments Blood Pressure 120/78 03/22/2025 1:50 PM EDT Pulse 82 03/22/2025 1:50 PM EDT Temperature 36.6 C (97.9 F) 03/22/2025 1:50 PM EDT Respiratory Rate 20 03/22/2025 1:50 PM EDT Oxygen Saturation 98% 03/22/2025 1:50 PM EDT Inhaled Oxygen Concentration - - Weight 54.7 kg (120 lb 9.6 oz) 03/22/2025 1:50 P M EDT Height 145 cm (4' 9.09 ) 03/22/2025 1:50 PM EDT Body Mass Index 26.02 03/22/2025 1:50 PM EDT documented in this encounter Progress Notes * Katheryn Rivera MD - 03/22/2025 2:00 PM EDT SUBJECTIVE Jean Mendez is a 55 y.o. female who presents for Annual Exam. 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 - Persistent hot flashes and mood swings following hysterectomy - Poor sleep, typically 4-5 hours per night, worsened by hot flashes - History of migraines, currently managed with migraine medication - Family history of mitochondrial disease (mother, sister, nephew affected) - 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 six sigma black belt engineer, currently undergoing saliva testing through [facility] - Prior adverse reaction to Paxil, including increased suicidal ideation and seizure - Current use of NAD+ injections (started March 19, 2025), two injections so far, reports slight improvement in energy - Prior use of melatonin (cycled on and off), magnesium, lemon balm, and black cohosh for sleep andmenopausal symptoms - No alcohol consumption, stopped to address fatigue - History of FMLA use due to fatigue impacting ability to work - Constipation improved with Linzess and suppository, as advised by GI doctor Problem List[1] Allergies[2] Medications Ordered Prior to Encounter[3] Review of Systems Constitutional: Positive for fatigue. Negative for chills and diaphoresis. Eyes: Negative for pain and redness. Respiratory: Negative for cough and shortness of breath. Gastrointestinal: Positive for constipation. Genitourinary: Negative for genital sores and hematuria. Musculoskeletal: Negative for gait problem and joint swelling. Neurological: Negative for seizures and numbness. Psychiatric/Behavioral: Negative for decreased concentration, dysphoric mood and hallucinations. OBJECTIVE Vitals: 03/22/25 1350 BP: 120/78 Pulse: 82 Resp: 20 Temp: 97.9 ??F (36.6 ??C) TempSrc: Oral SpO2: 98% Weight: 120 lb 9.6 oz (54.7 kg) Height: 4' 9.09 (1.45 m) Physical Exam Constitutional: General: She is not in acute distress. Appearance: Normal appearance. She is not ill-appearing, toxic-appearing or diaphoretic. HENT: Head: Normocephalic. Right Ear: There is no impacted cerumen. Left Ear: There is no impacted cerumen. Nose: Nose normal. No congestion or rhinorrhea. Eyes: Pupils: Pupils are equal, round, and reactive to light. Cardiovascular: Rate and Rhythm: Normal rate. Pulmonary: Effort: Pulmonary effort is normal. Abdominal: General: Abdomen is flat. Palpations: Abdomen is soft. Musculoskeletal: General: Normal range of motion. Cervical back: Normal range of motion. Skin: General: Skin is warm. Neurological: General: No focal deficit present. Mental Status: She is alert. Psychiatric: Mood and Affect: Mood normal. Assessment/Plan Assessment/Plan Diagnoses and all orders for this visit: Annual physical exam Comments: Normal cardiopulmonary exam Pt is to maintain a healthy and balanced diet. Orders: - CBC auto differential; Future - Comprehensive Metabolic Panel; Future - Lipid Panel, Standard; Future - TSH with Reflex to Free T4; Future - FSH; Future - FSH And LH; Future - Testosterone, Free (Dialysis) And Total, MS; Future - Hepatitis C Antibody with Reflex to HCV, RNA, Quantitative, Real-Time PCR; Future Slow transit constipation Comments: same regimen Pt is to remain well hydrated. Hot flashes due to menopause - CBC auto differential; Future - Comprehensive Metabolic Panel; Future - Lipid Panel, Standard; Future - TSH with Reflex to Free T4; Future - FSH; Future - FSH And LH; Future - Testosterone, Free (Dialysis) And Total, MS; Future Other fatigue - Vitamin D, 25-Hydroxy, Total, Immunoassay; Future - Vitamin B12/Folate, Serum Panel; Future Encounter for screening mammogram for malignant neoplasm of breast - BI Mammogram Screening Tomosynthesis Bilateral; Future Annual physical exam: - Ordered comprehensive blood work including CBC, ferritin, and blood glucose. Reviewed immunization care gaps and discussed recommended vaccines (shingles, pneumonia, flu, Tdap, hepatitis C screen).Patient elected to defer vaccines until follow-up visit. BMI discrepancy noted; will recheck and correct in chart. Slow transit constipation: - Constipation improved with current regimen. - Continue current management including Linzess and suppositories as needed. Hot flashes due to menopause: - Hot flashes and mood swings attributed to surgical menopause following complete hysterectomy withbilateral oophorectomy. Hormonal imbalance confirmed as etiology. - Ordered laboratory evaluation of hormone levels including FSH, LH, and testosterone. Discussed possible trial of estrogen therapy; patient elected to await lab results before initiating treatment. Discussed use of black cohosh as a supplement. - Risks and side effects: Discussed risks associated with estrogen therapy; patient expressed awareness and preference to review lab results prior to decision. Other fatigue: - Fatigue is multifactorial, possibly related to work-life imbalance, sleep disturbance, and underlying mitochondrial disease. Differential diagnosis includes systemic exertion intolerance disease and metabolic disorders. Mitochondrial disease suspected based on family history and symptomatology; de finitive diagnosis remains challenging. - Ordered comprehensive blood work including CBC, ferritin, and blood glucose. Recommended pacing activities and self-care. Supported patient???s use of NAD+ injections; discussed limited evidence for efficacy but no anticipated harm. Provided [facility] paperwork to accommodate remote work (2 days remote, 3 days on- site, with 1 day off for appointments). Discussed follow-up visit to reassess fatigue and consider immunizations. Encounter for screening mammogram for malignant neoplasm of breast: - Screening mammogram due; patient acknowledged need for updated imaging. - Provided order for bilateral mammogram to be completed at [facility]. This note was drafted using Ambient (AI) technology. The patient/patient's guardian has been informed and has consented to the use of this technology: Yes [1] Patient Active Problem List Diagnosis Classic migraine Anxiety and depression Rheumatic heart disease Endometriosis Constipation [2] No Known Allergies [3] Current Outpatient Medications on File Prior to Visit Medication Sig Dispense Refill Acetaminophen Extra Strength 500 MG tablet TAKE 1 TABLET BY MOUTH EVERY 6 HOURS IF NEEDED FOR MILD PAIN. 90 tablet 2 amitriptyline (Elavil) 10 MG tablet TAKE 4 TABLETS BY MOUTH EVERY DAY AT BEDTIME bisacodyl (Bisacodyl EC) 5 MG EC tablet Take 1 tablet (5 mg) by mouth if needed each day for constipation. DO NOT CRUSH CHEW OR SPLIT 30 tablet 1 Blood Pressure kit To check the BP daily. 1 kit 0 Emgality 120 MG/ML auto-injector Inject 1 each under the skin every 30 (thirty) days. linaCLOtide (Linzess) 145 MCG capsule Take 1 capsule (145 mcg) by mouth before breakfast. Do not crush or chew. 30 capsule 11 Misc. Devices ([employer] Pulse Oximeter) misc 1 each if needed (COVID). 1 each 0 pantoprazole (Protonix) 20 MG EC tablet Take 1 tablet (20 mg) by mouth before breakfast. Do not crush, chew, or split. 30 tablet 11 Ubrelvy 100 MG tablet TAKE 1/2 TO 1 TAB BY MOUTH ONCE NEEDED AT ONSET OF MIGRAINE,MAY REPEAT IN 2HRS(MAY TAKE W/ ALEVE) No current facility-administered medications on file prior to visit. documented in this encounter Plan of Treatment Upcoming Encounters Date Type Department Care Team (Late st Contact Info) Description 05/07/2025 1:45 PM EST Office Visit [facility] MED & PEDS [address] [place] [address] Katheryn Rivera MD [address] [place], [place] [phone] Scheduled Orders Name Type Priority Associated Diagnoses Orde r Schedule CBC auto differential Lab Routine Annual physical exam Hot flashes due to menopause Expected: 03/22/2025 (Approximate), Expires: 03/22/2026 Comprehensive Metabolic Panel Lab Routine Annual physical exam Hot flashes due to menopause Expected: 03/22/2025 (Approximate), Expires: 03/22/2026 Lipid Panel, Standard Lab Routine Annual physical exam Hot flashes due to menopause Expected: 03/22/2025 (Approximate), Expires: 03/22/2026 TSH with Reflex to Free T4 Lab Routine Annual physical exam Hot flashes due to menopause Expected: 03/22/2025 (Approximate), Expires: 03/22/2026 FSH Lab Routine Annual physical exam Hot flashes due to menopause Expected: 03/22/2025, Expires: 03/22/2026 FSH And LH Lab Routine Annual physical exam Hot flashes due to menopause Expected: 03/22/2025 (Approximate), Expires: 03/22/2026 Testosterone, Free (Dialysis) And Total, MS Lab Routine Annual physical exam Hot flashes due to menopause Expected: 03/22/2025 (Approximate), Expires: 03/22/2026 Vitamin D, 25-Hydroxy, Total, Immunoassay Lab Routine Other fatigue Expected: 03/22/2025 (Approximate), Expires: 03/22/2026 Vitamin B12/Folate, Serum Panel Lab Routine Other fatigue Expected: 03/22/2025, Expires: 03/22/2026 BI Mammogram Screening Tomosynthesis Bilateral Imaging Routine Encounter for screening mammogram for malignant neoplasm of breast Expected: 03/22/2025, Expires: 05/22/2026 Hepatitis C Antibody with Reflex to HCV, RNA, Quantitative, Real-Time PCR Lab Routine Annual physical exam Expected: 03/22/2025, Expires: 03/22/2026 documented as of this encounter Visit Diagnoses Diagnosis Annual physical exam- Primary Routine general medical examination at a health care facility Slow transit constipation Hot flashes due to menopause Other fatigue Encounter for screening mammogram for malignant neoplasm of breast documented in this encounter Additional Health Concerns Assessment Noted Time PHQ-9 Depression Total Score: 0 03/17/20 23 1:25 PM EDT documented as of this encounter Care Teams Mechanic'S Assistant Relationship Specialty Start Date End Date Katheryn Rivera MD [address] [place] [address] PCP - General Internal Medicine 01/16/20 documented as of this encounter
--- OUTSIDE RECORDS SUMMARY | 2025-03-22 15:10 | XMS_ITS | Encounter Summary ---
Author Organization [employer] Address [address] [facility] 7 [place] [address] Care Team Providers Care Revolving Inventory Clerk Name Role Phone Katheryn Rivera MD Primary Care Provider [phone] Reason for Visit * Reason Onset Date Comments Chart Prep 03/21/2025 Encounter Details Date Type Department Care Team ([facility] st Contact Info) Description 03/21/2025 Telephone [facility] CHC MED & PEDS [address] [place] [address] Katheryn Rivera MD [address] [place] [address] Chart Prep Social History Tobacco Use Types Packs/Day Years [...] AM EDT documented as of this encounter Miscellaneous Notes * Telephone Encounter - Mona Zimmer [place] - 03/21/2025 12:44 PM EDT Chart Prep Labs: not done Images: done Referrals: not applicable Vaccines due: Flu, PCV20, Tdap, Hep B, and Zoster Screenings: colonoscopy, mammogram, pap smear, STI screening, and LMP Overdue care gaps: SBIRT, SDOH, PHQ-9, Oral health screening, Disability screen, and Tobacco documented in this encounter Plan of Treatment Upcoming Encounters Date Type Department Care Team (Late st Contact Info) Description 05/07/2025 1:45 PM EST Office Visit [facility] MED & PEDS [address] [place] [address] Katheryn Rivera MD [address] [place] [address] documented as of this encounter Visit Diagnoses Not on filedocumented in this encounter Additional Health Concerns Assessment Noted Time PHQ-9 Depression Total Score: 0 03/17/20 23 1:25 PM EDT documented as of this encounter Care Teams Revolving Inventory Clerk Relationship Specialty Start Date End Date Katheryn Rivera MD [address] [place] [address] PCP - General Internal Medicine 01/16/20 documented as of this encounter
--- OUTSIDE RECORDS SUMMARY | 2025-03-22 15:10 | XMS_ITS | Encounter Summary ---
Author Organization [employer] Address [address] [facility] 7 [place] [address] Care Team Providers Care Inclusion Special Education Teacher Name Role Phone Katheryn Rivera MD Primary Care Provider [phone] Reason for Visit * Reason Comments Med Refill Encounter Details Date Type Department Care Team ([facility] Contact Info) Description 02/10/2025 Refill [facility] CHC MED & PEDS [address] [place], [place] [phone] Katheryn Rivera MD [address] [place] [address] Social History Tobacco Use Types Packs/Day Years [...] as of this encounter Plan of Treatment Upcoming Encounters Date Type Department Care Team (Late st Contact Info) Description 05/07/2025 1:45 PM EST Office Visit [facility] MED & PEDS [address] [place] [address] Katheryn Rivera MD [address] [place] [address] documented as of this encounter Visit Diagnoses Not on filedocumented in this encounter Additional Health Concerns Assessment Noted Time PHQ-9 Depression Total Score: 0 03/17/20 23 1:25 PM EDT documented as of this encounter Care Teams Inclusion Special Education Teacher Relationship Specialty Start Date End Date Katheryn Rivera MD [address] [place] [address] PCP - General Internal Medicine 01/16/20 documented as of this encounter
--- OUTSIDE RECORDS SUMMARY | 2025-03-22 15:10 | XMS_ITS | Encounter Summary ---
Author Organization [employer] Address [address] [facility] [address] [place] [address] Care Team Providers Care Wet Machine Tender Name Role Phone Katheryn Rivera MD Primary Care Provider [phone] Encounter Details Date Type Department Care Team (Latest Contact Info) Description 03/22/2025 Travel Social History Tobacco Use Types Packs/Day Years [...] Upcoming Encounters Date Type Department Care Team ([facility] st Contact Info) Description 05/07/2025 1:45 PM EST Office Visit [facility] CHC MED & PEDS [address] [place] [address] Katheryn Rivera MD [address] [place] [address] documented as of this encounter Visit Diagnoses Not on filedocumented in this encounter Additional Health Concerns Assessment Noted Time PHQ-9 Depression Total Score: 0 03/17/20 23 1:25 PM EDT documented as of this encounter Care Teams Wet Machine Tender Relationship Specialty Start Date End Date Katheryn Rivera MD [address] [place] [address] PCP - General Internal Medicine 01/16/20 documented as of this encounter
--- OUTSIDE RECORDS SUMMARY | 2025-03-22 15:10 | XMS_ITS | Encounter Summary ---
Author Organization [employer] Address [address] [facility] [address] [place] [address] Care Team Providers Care Continuous Improvement Coordinator Name Role Phone Katheryn Rivera MD Primary Care Provider [phone] Encounter Details Date Type Department Care Team (Late st Contact Info) Description 08/09/2024 Orders Only [facility] MEDICINE [address] [place] [address] Katheryn Rivera MD [address] [place], [place] [phone] Social History Tobacco Use Types Packs/Day Years [...] Description 05/07/2025 1:45 PM EST Office Visit [facility] CHC MED & PEDS [address] [place] [address] Katheryn Rivera MD [address] [place] [address] documented as of this encounter Visit Diagnoses Not on filedocumented in this encounter Additional Health Concerns Assessment Noted Time PHQ-9 Depression Total Score: 0 03/17/20 23 1:25 PM EDT documented as of this encounter Care Teams Continuous Improvement Coordinator Relationship Specialty Start Date End Date Katheryn Rivera MD [address] [place] [address] PCP - General Internal Medicine 01/16/20 documented as of this encounter
--- OUTSIDE RECORDS SUMMARY | 2025-03-22 15:10 | XMS_ITS | Encounter Summary ---
Author Organization [employer] Address [address] [facility] 7t [place] [address] Care Team Providers Care Utilization Management Manager Name Role Phone Katheryn Rivera MD Primary Care Provider [phone] Encounter Details Date Type Department Care Team (Late st Contact Info) Description 07/26/2024 Orders Only [facility] [address] [place] [address] ProviderGeri MD Social History Tobacco Use Types Packs/Day Years Used Date Smoking Tobacco: Never Smokeless Tobacco: Never Depression Answer Date Recorded Patient Health Questionnaire-9 Score 0 03/17/2023 Patient Health Questionnaire-9 Score 0 03/17/2023 Last PHQ-9: Questionnaire Data Not on file 1 Housing Stability Answer Date Recorded What is your housing situation today? I have violaalmaz [email or web address] 03/17/[address] you [...] Description 05/07/2025 1:45 PM EST Office Visit [facility] MED & PEDS [address] [place] [address] Katheryn Rivera MD [address] [place] [address] documented as of this encounter Procedures Procedure Name Priority Date/Time Associated Diagnosis Comments EGD Routine 07/26/2024 11:02 AM EST documented in this encounter Results * EGD (07/26/2024 11:02 AM EST) Anatomical Region Laterality Modality Endoscopy us Historical Provider ENDOSCOPY PROCEDURE ORDER KARRI Final Result documented in this encounter Visit Diagnoses Not on filedocumented in this encounter Additional Health Concerns Assessment Noted Time PHQ-9 Depression Total Score: 0 03/17/20 23 1:25 PM EDT documented as of this encounter Care Teams Utilization Management Manager Relationship Specialty Start Date End Date Katheryn Rivera MD [address] [place] [address] PCP - General Internal Medicine 01/16/20 documented as of this encounter
--- OUTSIDE RECORDS SUMMARY | 2025-03-22 15:10 | XMS_ITS | Clinical Summary ---
Author Organization [employer] Address [address] [facility] 7t [place] [address] Care Team Providers Care E Learning Designer Name Role Phone Katheryn Rivera MD Primary Care Provider Allergies No known active allergies Medications Misc. Devices ([facility] Pulse Oximeter) miscIndications:P neumonia due to COVID-19 virus 1 each if needed (COVID). 1 each 3 Active amitriptyline (Elavil) 10 MG tablet TAKE 4 TABLETS BY MOUTH EVERY DAY AT BEDTIME 3 Active Blood Pressure kit To check the BP daily. 1 kit 4 Active Emgality 120 MG/ML auto-injector Inject 1 each under the skin every 30 (thirty) days. 4 Active Ubrelvy 100 MG tablet TAKE 1/2 TO 1 TAB BY MOUTH ONCE NEEDED AT ONSET OF MIGRAINE,MAY REPEAT IN 2HRS(MAY TAKE W/ ALEVE) 4 Active Acetaminophen Extra Strength 500 MG tablet TAKE 1 TABLET BY MOUTH EVERY 6 HOURS IF NEEDED FOR MILD PAIN. 90 tablet 2 5 Active linaCLOtide (Linzess) 145 MCG capsuleIndication s:Other constipation Take 1 capsule (145 mcg) by mouth before breakfast. Do not crush or chew. 30 capsule 11 5 02/19/20 26 Active pantoprazole (Protonix) 20 MG EC tabletIndications :Other constipation Take 1 tablet (20 mg) by mouth before breakfast. Do not crush, chew, or split. 30 tablet 11 5 02/19/20 26 Active bisacodyl (Bisacodyl EC) 5 MG EC tabletIndications :Slow transit constipation Take 1 tablet (5 mg) by mouth if needed each day for constipation . DO NOT CRUSH CHEW OR SPLIT 30 tablet 1 Active Active Problems Problem Noted Date Diagnosed Date Constipation 03/16/2024 Endometriosis 03/06/2024 Classic migraine 03/17/2023 03/17/2023 Anxiety and depression 03/17/2023 Rheumatic heart disease 03/17/2023 03/17/20 Encounters Date Type Department Care Team Description 03/22/2025 2:00 PM EDT Office Visit [facility] [address] [place] [address] Katheryn Rivera MD Annual physical exam (Primary Dx); Slow transit constipation; Hot flashes due to menopause; Other fatigue; Encounter for screening mammogram for malignant neoplasm of breast 03/22/2025 Travel 03/21/2025 Telephone [facility] [address] [place] [address] Katheryn Rivera MD Chart Prep 03/15/2025 Patient Outreach [facility] [address] [place] [address] Katheryn Rivera MD Pre-visit Planning (Pre visit planning LVM ) 02/18/2025 1:45 PM EDT Telemedicine [facility] [address] [place] [address] Katheryn Rivera MD Other constipation (Primary Dx); Slow transit constipation; Chronic fatigue 02/18/2025 Travel 02/10/2025 Refill [facility] [address] [place] [address] Katheryn Rivera MD 12/31/2024 Refill [facility] [address] [place] [address] Katheryn Rivera MD Slow transit constipation 12/21/2024 Refill [facility] [address] [place] [address] Arleen Arora MD from Last 3 Months Immunizations Immunization Administration Dates Next Due Influenza injectable quadrivalent preservative f ree 02/07/2023,02/19/2021 Influenza, IIV3, injectable 02/02/2013 Influenza, seasonal, injectable, preservative fr ee 03/06/2024,02/02/2013 Pfizer Covid-19 Vaccine 12+ 03/06/2024 Td (adult), unspecified 06/11/2009 Social History Tobacco Use Types Packs/Day Years Used Date Smoking Tobacco: Never Smokeless Tobacco: Never Tobacco Cessation:Counseling Given: Not Answered Depression Answer Date Recorded Patient Health Questionnaire-9 [...] Orientation Straight 10/16/2024 11 :33 AM EDT Last Filed Vital Signs Vital [...] Mass Index 26.02 03/22/2025 1:50 PM EDT Plan of Treatment Upcoming Encounters Date Type Department Care Team (Late st Contact Info) Description 05/07/2025 1:45 PM EST Office Visit [facility] [address] [place], [place] [phone] Katheryn Rivera MD [address] [place] [address] Health Maintenance Due Date Last Done Comments CT Colonography 1969 Colonoscopy 1969 Colorectal Cancer Screening 1969 FIT DNA/Cologuard 1969 FIT 1969 FOBT 1969 HIV Screening 1969 Lipid Panel 1969 Sigmoidoscopy 1969 Alcohol/Substance Use Screening 1981 Hepatitis C Screening 1987 Hepatitis B Vaccines (1 of 3 - 19+ 3-dose series) 01/31/1988 Pap Smear 1990 HPV/Cotest 1999 Mammogram 2009 DTaP/Tdap/Td Vaccines (1 - Tdap) 06/12/2009 06/11/2009 Pneumococcal Vaccine: 50+ Years (1 of 1 - PCV) 2019 Zoster Vaccines (1 of 2) 2019 Depression Screening 03/17/2024 03/17/2023, 03/17/20 23 SDOH Screening 03/17/2024 03/17/2023 Influenza Vaccine (#1) 2025 4, 02/07/2023, 02/19/2021, Additional history exists Tobacco Screening 02/18/2026 02/18/2025 Disability Screening 03/22/2026 03/22/2025 RSV Patients and Patients Aged 60 years or older (1 - 1-dose 75+ series) 01/31/2044 COVID-19 Vaccine Completed 03/06/2024, , 03/12/2021, Additional history exists Cervical Cancer Screening Discontinued HIB Vaccines Aged Out No longer eligi [...] patient's age to complete this topic Meningococcal B Vaccine Aged Out No l onger eligible based on patient's age to complete this topic Meningococcal Vaccine Aged Out No dhruv ramón eligible based on patient's age to complete this topic RSV under 20 months Aged Out No longe r eligible based on patient's age to complete this topic Rotavirus Vaccines Aged Out No longer eligible based on patient's age to complete [place] [id number] [facility] [place] [id number] [place] [phone] [place] [address] Care Teams E Learning Designer Relationship Specialty Start Date End Date Katheryn Rivera MD [address] [place] [phone] PCP - General Internal Medicine 01/16/20
[2025-03-22 17:53] LABS: MANUAL DIFF FLAG NO
[2025-03-22 18:17] LABS: Hematocrit 37.0 % (37.0-47.0); Hemoglobin 11.6 g/dl (12.0-16.0); Imm Gran Abs Auto 0.01 X10*3/uL (0.00-0.03); Imm Gran Pct Auto 0.2 % (0.0-0.4); Lymphocytes Absolute Auto 2.0 X10*3/uL (1.2-4.9); Mean Corpuscular HGB Conc 31.4 g/dl (31.0-35.0); Mean Corpuscular Hemoglobin 28.3 pg (27.0-33.0); Mean Corpuscular Volume 90.2 fL (80.0-98.0); NRBC Abs Auto 0.000 X10*3/uL (0.0-0.012); NRBC Pct Auto 0.0 /100WBC (0.0-0.2); Platelet Count 313 X10*3/uL (160-400); Red Blood Count 4.10 X10*6/uL (4.20-5.50); White Blood Count 4.3 X10*3/uL (4.8-10.8)
[2025-03-22 18:38] LABS: Alanine Aminotransferase 29 U/L (0-31); Albumin Level 4.3 g/dL (3.5-5.0); Alkaline Phosphatase 69 U/L (39-117); Anion Gap 12 (12-20); Aspartate Amino Transferase 30 U/L (5-31); Blood Urea Nitrogen 17 mg/dL (9-16); Calcium 9.0 mg/dL (8.4-10.2); Carbon Dioxide 29 mmol/L (22-29); Chloride 103 mmol/L (96-108); Cholesterol 226 mg/dL (<200); Estimated Glomerular Filt Rate > 60; HDL Cholesterol 73 mg/dL (>40); Potassium 3.4 mmol/L (3.3-5.1); Sodium 141 mmol/L (135-145); Total Protein 7.2 g/dL (6.5-8.0); Triglycerides 70 mg/dL (<150)
[2025-03-22 19:00] LABS: Folate 11.6 ng/mL (> or = 4.0); Vitamin B12 985 pg/mL (200-900)
[2025-03-23 02:32] LABS: Follicle Stimulating Hormone 51.6 mIU/mL
[2025-03-23 07:26] LABS: ~HepC Num1 0.06 S/CO (0.00-0.79); ~Hepatitis C Antibody Nonreactive (Nonreactive)
[2025-03-28 19:58] LABS: Testosterone, Free 1.1 pg/mL (0.1-6.4)
== END 2025-03-22 14:40 | disposition home or self-care (01) ==
LOC: HO.CHCLDS 14:39
PROVIDERS: Visit Provider Internal Medicine
DX: Z00.00 Encounter for general adult medical examination without abnormal findings (principal); R53.83 Other fatigue; N95.1 Menopausal and female climacteric states; Z11.59 Encounter for screening for other viral diseases; Z13.6 Encounter for screening for cardiovascular disorders
CPT/HCPCS: 36415; 80053; 80061; 82306; 82607; 82746; 83001; 84402; 84403; 84443; 85025; 86803

== ENCOUNTER 2025-03-28 10:58 | Outpatient (REF) | payer BC, SELFPAY ==
--- OUTSIDE RECORDS SUMMARY | 2025-03-28 13:22 | XMS_ITS | Clinical Summary ---
Author Organization [facility] [employer] Address [address] [place] [address] Care Team Providers Care Gambling Broker Name Role Phone No, Pcp MUNICIPAL ENGINEER Primary Care Provider Unavailabl e Allergies No [...] 60 08/21/2020 12:31 PM EDT Temperature 36.1 C (97 F) 08/21/2020 12:31 PM EDT Respiratory Rate - - Oxygen Saturation 100% 08/21/2020 12:31 PM EDT Inhaled Oxygen Concentration - - Weight - - Height - - Body Mass Index - - Plan of Treatment Not on file Medical Devices Not on file Insurance [facility] Care Teams Gambling Broker Relationship Specialty Start Date End Date No, Pcp, MUNICIPAL ENGINEER N/A Do not use PCP - General Family Medicine 06/30/20
--- OUTSIDE RECORDS SUMMARY | 2025-03-28 13:22 | XMS_ITS | Clinical Summary ---
Author Organization [employer] Address [address] [facility] 7t [place] [address] Care Team Providers Care Geology Instructor Name Role Phone Katheryn Rivera MD Primary Care Provider [phone] Allergies No known active allergies Medications Misc. [...] CRUSH CHEW OR SPLIT 30 tablet 1 5 Active Active Problems Problem Noted Date Diagnosed Date Constipation 03/16/2024 Endometriosis 03/06/2024 Classic migraine 03/17/2023 03/17/2023 Anxiety and depression 03/17/2023 Rheumatic heart disease 03/17/2023 03/17/20 23 Encounters Date Type Department Care Team Description 03/27/2025 Orders Only [facility] [address] [place] [address] Katheryn Rivera MD Normocytic anemia (Primary Dx) 03/24/2025 Results Follow-Up [facility] [address] [place] [phone] Katheryn Rivera MD CBC auto differential, Comprehensive Metabolic Panel, Lipid Panel, Standard, Additional followed-up results: 5 03/22/2025 2:00 PM EDT Office Visit [facility] [address] [place] [address] Katheryn Rivera MD Annual physical exam (Primary Dx); Slow transit constipation; Hot flashes due to menopause; Other fatigue; Encounter for screening mammogram for malignant neoplasm of breast 03/22/2025 Travel 03/21/2025 Telephone [facility] [address] [place] [address] Katheryn Rivera MD Chart Prep 03/15/2025 Patient Outreach [facility] [address] [place] [address] Katheryn Rivera MD Pre-visit Planning (Pre visit planning LVM ) 02/18/2025 1:45 PM EDT Telemedicine [facility] [address] [place] [address] Katheryn Rivera MD Other constipation (Primary Dx); Slow transit constipation; Chronic fatigue 02/18/2025 Travel 02/10/2025 Refill [facility] [address] [place] [address] Katheryn Rivera MD 12/31/2024 Refill [facility] [address] [place] [address] Katheryn Rivera MD Slow transit constipation from Last 3 Months Immunizations Immunization Administration [...] Answer Date Recorded Patient Health Questionnaire-9 Score 7 03/22/2025 Patient Health Questionnaire-9 Score 7 03/22/2025 Last PHQ-9: Questionnaire Data Not on file 1 Housing Stability Answer Date Recorded What is your housing situation today? I have viola mcneil 03/22/[address] you li ve. Do you have problems with any of the following? None of the above 03/22/2025 Food Insecurity Answer Date Recorded Within the past 12 months, y ou worried that your food would run out before you got money to buy more: Never True 03/22/2025 Within the past 12 months,th e food you bought just didn't last and you didn't have enough money to get more: Never True Transportation Answer Date Recorded In the past 12 months, has l ack of transportation kept you from medical appts, meetings, work or from getting things needed for daily living? No 03/22/2025 Utilities Answer Date Recorded In the past 12 months, has t he electric, gas, oil or water company threatened to shut off services in your home? No 03/22/2025 Depression Answer Date Recorded Patient Health Questionnaire-2 Score 0 03/22/2025 Internet Access Answer Date Recorded Internet Access Q1 Yes 03/22/2025 Internet Access Q2 Not on file 03/22/2025 Comments Unknown Sex and Gender Information Value [...] 05/07/2025 1:45 PM EST Office Visit [facility] [address] [place] [address] Katheryn Rivera MD [address] [place] [address] Health Maintenance Due Date Last Done Comments CT Colonography 1969 Colonoscopy 1969 Colorectal Cancer Screening 1969 FIT DNA/Cologuard 1969 FIT 1969 FOBT 1969 HIV Screening 1969 Sigmoidoscopy 1969 Hepatitis B Vaccines (1 of 3 - 19+ 3-dose series) 01/31/1988 Pap Smear 1990 HPV/Cotest 1999 Mammogram 2009 DTaP/Tdap/Td Vaccines (1 - Tdap) 06/12/2009 06/11/2009 Pneumococcal Vaccine: 50+ Years (1 of 1 - PCV) 2019 Zoster Vaccines (1 of 2) 2019 Influenza Vaccine (#1) 2025 4, 02/07/2023, 02/19/2021, Additional history exists Tobacco Screening 02/18/2026 02/18/2025 Alcohol/Substance Use Screening 03/22/2026 03/22/2025 Depression Screening 03/22/2026 03/22/2025, 03/22/20 Disability Screening 03/22/2026 03/22/2025 SDOH Screening 03/22/2026 03/22/2025 Lipid Panel 03/22/2030 03/22/2025 RSV Patients and Patients Aged 60 years or older (1 - 1-dose 75+ series) 01/31/2044 COVID-19 Vaccine Completed 03/06/2024, , 03/12/2021, Additional history exists Hepatitis C Screening Completed 03/22/2025 Cervical Cancer Screening Discontinued HIB Vaccines Aged [...] Procedure Name Priority Date/Time Associated Diagnosis Comments HEPATITIS C AB W/REFL TO HCV RNA, QN, PCR Routine 03/22/2025 2:41 PM EDT Annual physical exam VITAMIN B12/FOLATE, SERUM PANEL Routine 03/22/2025 2:41 PM EDT Other fatigue VITAMIN D,25-OH,TOTAL,IA Routine 03/22/2025 2:41 PM EDT Other fatigue FSH Routine 03/22/2025 2:41 PM EDT Annual physical exam Hot flashes due to menopause TSH W/REFLEX TO FT4 Routine 03/22/2025 2 :41 PM EDT Annual physical exam Hot flashes due to menopause LIPID PANEL, STANDARD Routine 03/22/2025 2:41 PM EDT Annual physical exam Hot flashes due to menopause COMPREHENSIVE METABOLIC PANEL Routine 03/22/2025 2:41 PM EDT Annual physical exam Hot flashes due to menopause CBC WITH AUTO DIFFERENTIAL Routine 03/22/2025 2:41 PM EDT Annual physical exam Hot flashes due to menopause from Last 3 Months Results * Vitamin D, 25-Hydroxy, Total, Immunoassay (03/22/2025 2:41 PM EDT) Vitamin D 25-OH Total 65.6 >30 ng/mL [facility] Comment: Health Based Reference Values*< 20 ng/mL Cdiizamga65-03 ng/mL Insufficient> 30 ng/mL Sufficient*Chris MOSS. N Engl J Med. 2007;357:266-280There is no well-established upper level of normal vitamin Dlevels. Some laboratories use 50 ng/mL as an upper limit ofnormal. However, toxicity is patient-dependent and may occurat any level. Careful correlation with the patient'spresentation is necessary and, if there is concern forvitamin D toxicity, treatment should be consideredirrespective of the serum level.Care must be taken in interpreting Vitamin D results fromdifferent laboratories and methodologies. Published datademonstrated that results from patients undergoinghemodialysis may show a negative bias when tested withvarious automated 25-OH vitamin D assays when compared toLC-MS/MS.When testing samples from patients whose predominant form ofVitamin D is Vitamin D2, such as patients receiving VitaminD2 supplementation, results that are subtherapeutic shouldbe confirmed with another method such as LC-MS/MS. Blood Venous blood specimen / Unknown 03/22/2025 2:41 PM EDT 03/22/2025 5:53 PM EDT us Katheryn Rivera MD LAB BLOOD ORDERABLES Final Result [facility] [address] [place] [address] [phone] * (ABNORMAL) Vitamin B12/Folate, Serum Panel (03/22/2025 2:41 PM EDT) [facility] Vitamin B12 985(H) 200 - 900 pg/mL [facility] Comment:NORMAL 200-900 PG/ML INDETERMINATE 160-199 PG/ML DEFICIENT < 160 PG/ML Folate 11.6 > or = 4.0 ng/mL [facility] Comment:Reference Values:> o r = 4.0 ng/mL< 4.0 ng/mL suggests folate deficiency Methotrexate, aminopterin and folinic acid(leucovorin) are chemotherapeutic agents whose molecularstructures are similar to folate; therefore, the Architectfolate assay cannot be used for patients using these drugs. Blood Venous blood specimen / Unknown 03/22/2025 2:41 PM EDT 03/22/2025 5:51 PM EDT us Katheryn Rivera MD LAB BLOOD ORDERABLES Final Result Performing Organization Address City/[facility] Co de Phone Number [facility] [address] [place] [phone] * TSH with Reflex to Free T4 (03/22/2025 2:41 PM EDT) [facility] TSH reflex Free T4 0.81 0.32 - 4.0 uIU/mL [facility] Blood Venous blood specimen / Unknown 03/22/2025 2:41 PM EDT 03/22/2025 5:53 PM EDT us Katheryn Rivera MD LAB BLOOD ORDERABLES Final Result Performing Organization Address City/[facility]/ZIP Co de Phone Number [facility] [address] [place] [phone] * (ABNORMAL) CBC auto differential (03/22/2025 2:41 PM EDT) White Blood Count 4.3(L) 4.8 - 10.8 X10*3/uL [facility] Red Blood Count 4.10(L) 4.20 - 5.50 X10*6/uL [facility] Hemoglobin 11.6(L) 12.0 - 16.0 g/dl [facility] Hematocrit 37.0 37.0 - 47.0 % [facility] Mean Corpuscular Volume 90.2 80.0 - 98.0 fL [facility] Mean Corpuscular Hemoglobin 28.3 27.0 - 33.0 pg [facility] Mean Corpuscular HGB Conc 31.4 31.0 - 35.0 g/dl [facility] Red Cell Distribution Width 13.8 11.0 - 16.0 % [facility] Platelet Count 313 160 - 400 X10*3/uL [facility] Mean Platelet Volume 9.7 9.4 - 12.3 fL [facility] Neutrophils Percent Auto 43.6(L) 45 - 73 % [facility] Imm Gran Pct Auto 0.2 0.0 - 0.4 % [facility] Lymphocytes Percent Auto 46.1(H) 20 - 40 % [facility] Monocytes Percent Auto 8.0 2 - 11 % [facility] Eosinophils Percent Auto 1.6 0 - 4 % [facility] Basophils Percent Auto 0.5 0 - 2 % [facility] NRBC Pct Auto 0.0 0.0 - 0.2 /100WBC [facility] Neutrophils Absolute Auto 1.9(L) 2.0 - 8.3 x10*3/uL [facility] Imm Gran Abs Auto 0.01 0.00 - 0.03 X10*3/uL [facility] Lymphocytes Absolute Auto 2.0 1.2 - 4.9 X10*3/uL [facility] Monocytes Absolute Auto 0.3 0.1 - 1.2 X10*3/uL [facility] Eosinophils Absolute Auto 0.1 0.0 - 0.4 X10*3/uL [facility] Basophils Absolute Auto 0.0 0.0 - 0.2 X10*3/uL [facility] NRBC Abs Auto 0.000 0.0 - 0.012 X10*3/uL [facility] Blood Venous blood specimen / Unknown 03/22/2025 2:41 PM EDT 03/22/2025 5:51 PM EDT Katheryn Rivera MD LAB BLOOD ORDERABLES Final Result Performing Organization Address [facility] Co de Phone Number [facility] [address] [place] [phone] * Hepatitis C Antibody with Reflex to HCV, RNA, Quantitative, Real-Time PCR (03/22/2025 2:41 PM EDT) Pathologist [facility] Hepatitis C Antibody Nonreactive Nonreactive [facility] Comment:Antibodies to HCV no t detected; does not exclude early acuteHCV infection. Blood Venous blood specimen / Unknown 03/22/2025 2:41 PM EDT 03/22/2025 5:51 PM EDT us Katheryn Rivera MD LAB BLOOD ORDERABLES Final Result Performing Organization Address [facility] Co de Phone Number [facility] [address] [place] [phone] * (ABNORMAL) Lipid Panel, Standard (03/22/2025 2:41 PM EDT) Triglycerides 70 <150 mg/dL [facility] Comment:Desirable Triglyceri de: less than 150 mg/dLBorderline High Triglyceride 150-199 mg/dLHigh Triglyceride: 200-499 mg/dLVery High Triglyceride: greater than or equal to 5OO mg/dL Cholesterol 226(H) <200 mg/dL [facility] Comment:Desirable Cholestero l: less than 200 mg/dLBorderline High Cholesterol: 200-239 mg/dLHigh Cholesterol: greater than 239 mg/dL LDL Cholesterol Calculated 139(H) <100 mg/dL [facility] Comment:Desirable LDL: less than 100 mg/dLNear Optimal/Above Optimal LDL: 110- 129 mg/dLBorderline High LDL: 130-159 mg/dLHigh LDL: 160-189 mg/dLVery High LDL: greater than or equal to 190 mg/dL HDL Cholesterol 73 >40 mg/dL [facility] Comment:Desirable HDL: great er than 40 mg/dL Note: This HDL assay may give artificially low results in patients with liver disease. Blood Venous blood specimen / Unknown 03/22/2025 2:41 PM EDT 03/22/2025 5:53 PM EDT us Katheryn Rivera MD LAB BLOOD ORDERABLES Final Result [facility] [address] [place] [phone] * (ABNORMAL) Comprehensive Metabolic Panel (03/22/2025 2:41 PM EDT) Sodium 141 135 - 145 mmol/L [facility] Potassium 3.4 3.3 - 5.1 mmol/L [facility] Chloride 103 96 - 108 mmol/L [facility] Carbon Dioxide 29 22 - 29 mmol/L [facility] Anion Gap 12 12 - 20 [facility] Urea Nitrogen (BUN) 17(H) 9 - 16 mg/dL [facility] Creatinine, Serum 0.83 0.5 - 1.4 mg/dL [facility] Estimated Glomerular Filt Rate >60 [facility] Comment:Chronic Kidney Disea se: Estimated GFR < 60 mL/min/1.47v2Hgxufe Kidney Disease: Estimated GFR < 15 mL/min/1.73m2 Glucose 74 60 - 115 mg/dL [facility] Calcium 9.0 8.4 - 10.2 mg/dL [facility] Bilirubin, Total 0.2 0.0 - 1.0 mg/dL [facility] Aspartate Amino Transferase 30 5 - 31 U/L [facility] Alanine Aminotransferase 29 0 - 31 U/L [facility] Total Protein 7.2 6.5 - 8.0 g/dL [facility] Albumin Level 4.3 3.5 - 5.0 g/dL [facility] Alkaline Phosphatase 69 39 - 117 U/L [facility] Blood Venous blood specimen / Unknown 03/22/2025 2:41 PM EDT 03/22/2025 5:53 PM EDT Katheryn Rivera MD LAB BLOOD ORDERABLES Final Result [facility] [address] [place] [phone] from Last 3 Months Insurance [facility] Care Teams Geology Instructor Relationship Specialty Start Date End Date Katheryn Rivera MD [address] [place] [phone] PCP - General Internal Medicine 01/16/20
--- OUTSIDE RECORDS SUMMARY | 2025-03-28 13:22 | XMS_ITS | Encounter Summary ---
Author Organization [employer] Address [address] [facility] [address] [place] [address] Care Team Providers Care Credit Rating Inspector Name Role Phone Katheryn Rivera MD Primary Care Provider [phone] Encounter Details Date Type Department Care Team (Latest Contact Info) Description 03/24/2025 Results Follow-Up [facility] [address] [place], [place] [phone] Katheryn Rivera MD [address] [place] [address] CBC auto differential, Comprehensive Metabolic Panel, Lipid Panel, Standard, Additional followed-up results: 5 Social History Tobacco Use Types Packs/Day Years [...] as of this encounter Miscellaneous Notes * Result Encounter Note - Katheryn Rivera MD - 03/24/2025 7:37 PM EST Please call. Labs reviewed: acceptable except for mild Normocytic anemia. I recommend checking her ferritin level to assess her reserves. If below 45 ng/ml I will start Iron supplementation. The 10-year ASCVD risk score (Lisa DK, et al., 2019) is: 1.7% Values used to calculate the score: Age: 55 years Sex: Female Is Non- : No Diabetic: No Tobacco smoker: No Systolic Blood Pressure: 120 mmHg Is BP treated: No HDL Cholesterol: 73 mg/dL Total Cholesterol: 226 mg/dL Pt low risk for ASCVD. No need to start a statin. Please advise to continue w/ her healthy and balanced diet. documented in this encounter Plan of Treatment Upcoming Encounters Date Type Department Care Team (Late st Contact Info) Description 05/07/2025 1:45 PM EST Office Visit [facility] [address] [place], [place] [phone] Katheryn Rivera MD [address] [place] [address] documented as of this encounter Visit Diagnoses Not on filedocumented in this encounter Additional Health Concerns Assessment Noted Time PHQ-9 Depression Total Score: 7 03/22/20 25 4:08 PM EDT documented as of this encounter Care Teams Credit Rating Inspector Relationship Specialty Start Date End Date Katheryn Rivera MD [address] [place] [phone] PCP - General Internal Medicine 01/16/20 documented as of this encounter
--- OUTSIDE RECORDS SUMMARY | 2025-03-28 13:22 | XMS_ITS | Encounter Summary ---
Author Organization [employer] Address [address] [facility] 7t [place] [address] Care Team Providers Care Outside Sales Name Role Phone Katheryn Rivera MD Primary Care Provider [phone] Encounter Details Date Type Department Care Team (Late st Contact Info) Description 08/09/2024 Orders Only [facility] [address] [place] [address] Katheryn Rivera MD [address] [place], [place] [phone] Social History Tobacco Use Types Packs/Day Years [...] Description 05/07/2025 1:45 PM EST Office Visit [facility] [address] [place] [address] Katheryn Rivera MD [address] [place] [address] documented as of this encounter Visit Diagnoses Not on filedocumented in this encounter Additional Health Concerns Assessment Noted Time PHQ-9 Depression Total Score: 0 03/17/20 23 1:25 PM EDT documented as of this encounter Care Teams Outside Sales Relationship Specialty Start Date End Date Katheryn Rivera MD [address] [place] [address] PCP - General Internal Medicine 01/16/20 documented as of this encounter
--- OUTSIDE RECORDS SUMMARY | 2025-03-28 13:22 | XMS_ITS | Encounter Summary ---
Author Organization [employer] Address [address] [facility] [address] [place] [address] Care Team Providers Care Supervisor Lace Tearing Name Role Phone Katheryn Rivera MD Primary Care Provider [phone] Reason for Visit * Reason Comments Med Refill Encounter Details Date Type Department Care Team ([facility] Contact Info) Description 02/10/2025 Refill [facility] [address], [place] [phone] Katheryn Rivera MD [address] [place] [address] Social History Tobacco Use Types Packs/Day Years [...] Description 05/07/2025 1:45 PM EST Office Visit [facility] [address] [place] [address] Katheryn Rivera MD [address] [place] [address] documented as of this encounter Visit Diagnoses Not on filedocumented in this encounter Additional Health Concerns Assessment Noted Time PHQ-9 Depression Total Score: 0 03/17/20 23 1:25 PM EDT documented as of this encounter Care Teams Supervisor Lace Tearing Relationship Specialty Start Date End Date Katheryn Rivera MD [address] [place] [address] PCP - General Internal Medicine 01/16/20 documented as of this encounter
--- OUTSIDE RECORDS SUMMARY | 2025-03-28 13:22 | XMS_ITS | Encounter Summary ---
Author Organization [employer] Address [address] [facility] [address] [place] [address] Care Team Providers Care Bread Wrapping Machine Feeder Name Role Phone Katheryn Rivera MD Primary Care Provider [phone] Encounter Details Date Type Department Care Team (Late st Contact Info) Description 07/26/2024 Orders Only [facility] [address] [place] [address] ProviderGeri MD Social History Tobacco Use Types [...] 1:45 PM EST Office Visit [facility] [address] [place] [address] Katheryn Rivera MD [address] [place] [address] documented as of this encounter Procedures Procedure [...] documented as of this encounter Care Teams Bread Wrapping Machine Feeder Relationship Specialty Start Date End Date Katheryn Rivera MD [address] [place] [address] PCP - General Internal Medicine 01/16/20 documented as of this encounter
--- OUTSIDE RECORDS SUMMARY | 2025-03-28 13:22 | XMS_ITS | Encounter Summary ---
Author Organization [employer] Address [address] [facility] [address] [place] [address] Care Team Providers Care Hands And Dial Inspector Name Role Phone Katheryn Rivera MD Primary Care Provider [phone] Encounter Details Date Type Department Care Team ([facility] st Contact Info) Description 03/27/2025 Orders Only [facility] [address] [place], [place] [phone] Katheryn Rivera MD [address] [place] [address] Normocytic anemia (Primary Dx) Social History Tobacco Use Types Packs/Day Years [...] Upcoming Encounters Date Type Department Care Team ([facility] st Contact Info) Description 05/07/2025 1:45 PM EST Office Visit [facility] [address] [place] [address] Katheryn Rivera MD [address] [place] [address] Scheduled Orders Name Type Priority Associated Diagnoses Orde r Schedule Iron And Total Iron Binding Capacity Lab Routine Normocytic anemia Expected: 03/27/2025, Expires: 03/27/2026 Ferritin Lab Routine Normocytic anemia Expected: 03/27/2025, Expires: 03/27/2026 Reticulocyte Count Lab Routine Normocytic anemia Expected: 03/27/2025, Expires: 03/27/2026 documented as of this encounter Visit Diagnoses Diagnosis Normocytic anemia- Primary Unspecified anemia documented in this encounter Additional Health Concerns Assessment Noted Time PHQ-9 Depression Total Score: 7 03/22/20 25 4:08 PM EDT documented as of this encounter Care Teams Hands And Dial Inspector Relationship Specialty Start Date End Date Katheryn Rivera MD [address] [place] [address] PCP - General Internal Medicine 01/16/20 documented as of this encounter
[2025-03-28 14:17] LABS: Reticulocytes Absolute 0.035 X10*6/uL (0.026-0.095)
[2025-03-28 14:37] LABS: Iron 126 mcg/dL (30-160); Percent Iron Saturation 39 % (15-50); Total Iron Binding Capacity 319 mcg/dL (228-428); Unsaturated Iron Binding 193 ug/dL
[2025-03-28 14:55] LABS: Ferritin 35 ng/mL (10-250)
== END 2025-03-28 10:59 | disposition home or self-care (01) ==
LOC: HO.CHCLDS 10:58
PROVIDERS: Visit Provider Internal Medicine
DX: D64.9 Anemia, unspecified (principal)
CPT/HCPCS: 36415; 82728; 83540; 85045